=== PATIENT | female | born 1975 | race Caucasian/White ===

== ENCOUNTER 2022-01-22 12:12 | Day surgery (SDC) | payer BC ==
[~2022-01-22] VITALS: Ht 170.2 cm; Wt 102.7 kg
[2022-01-22 13:00] VITALS: BP 144/103; PULSE 76; TEMP 97.5
[2022-01-22 13:30] VITALS: BP 96/69; PULSE 98; TEMP 97.2
--- NOTE | 2022-01-22 13:30 | NUR ---
The patient arrived back to [facility] from the endoscopy suite at this time. The patient ambulated from the cart to the recliner in her room with the stand by assistance of two nurses and appeared to tolerate the activity well. Post procedure vital signs were started at this time. The patient agrees to try some cranberry juice at this time. Warm blanket provided. Call light is within reach. Denies any further needs.
[2022-01-22 13:45] VITALS: BP 115/102; PULSE 89
--- NOTE | 2022-01-22 13:45 | NUR ---
The patient is speaking to the doctor regarding the findings of the procedure.
[2022-01-22 14:00] VITALS: BP 112/95; PULSE 90
--- NOTE | 2022-01-22 14:05 | NUR ---
Discharge instructions were reviewed with the patient at this time. She verbalized understanding and has no questions for the nurse at this time. The patiet's IV to her right hand was removed and a pressure dressing was applied to the site. The nurse instructed the patient to get dressed and notify the staff when she is ready to be escorted out. The patient's daugther, Ida, was sent to pull the car up to the patient entrance.
--- NOTE | 2022-01-22 14:15 | NUR ---
The patient was escorted out via wheelchair to a private vehicle by JEROME Ponce. The patient's belongings and dischargep paperwork were sent with her. The patient's daughter is present to drive her home.
== END 2022-01-22 14:15 | disposition home or self-care (01) ==
LOC: SDCO 12:12
DX: K52.9 Noninfective gastroenteritis and colitis, unspecified (principal)
CPT/HCPCS: J0360; J2704; J3010; J7030